=== PATIENT | male | born 1995 | race Caucasian/White ===

== ENCOUNTER 2019-01-03 15:29 | Emergency (ER) | payer OTHER, BC, SELFPAY ==
[2019-01-03 15:31] VITALS: BP 151/66; PULSE 82; RESP 16; TEMP 36.1; O2SAT 100; BMI 25.5
--- NOTE | 2019-01-03 15:53 | ED.VISSUMM ---
- ER Visit Summary Date of Service: 01/03/19 Chief Complaint: Left foot pain post injury History of Present Illness: The patient is a 23 M no seen in past medical or surgical history. States about a week and a half ago he was getting off a piece of equipment at his job site. When he felt a pop in his left foot has had pain intermittent swelling. He was seen in urgent care the other day he had x-rays obtained he was called later and told he had a fracture in his foot. He is unsure where. He said he again is stepped off the same piece of equipment and has had more pain in his foot. No prior history or surgery to his left foot. The pain is primary to distal and of the fourth and fifth metatarsals and along the midshaft of the fifth metatarsal per the patient. Physical Examination: Well-appearing young male. Vital signs stable afebrile. HEENT exam normal. Lungs clear. Heart regular rhythm no murmur. Abdomen soft nontender. Remedies moves all 4. Neurovascular intact. His left ankle is nontender nonswollen normal range of motion. Achilles tendon is intact. He has tenderness along the distal aspect of the fourth and fifth metatarsals and the midshaft of the fifth metatarsal. There is no significant swelling. DP pulses intact. Left foot is neurovascular intact with normal touch sensation and wiggle his toes. Otherwise exam unremarkable. Test Results: Left foot x-ray 3 views read by myself and radiologist shows no acute abnormality. No fracture. Emergency Department Course and Treatment: Repeat exam no change. Discussed in 1 of the x-ray with patient. Treatment Plan: Postop shoe. Ice to his foot. Motrin and Tylenol for pain. Follow-up if not improving. Disposition: Discharge Impression: Acute left foot contusion Worker's Comp. injury This note was generated with [employer] dictation software. It may contain incorrect words, spelling, and punctuation that were not noted in review of the chart prior to signing ED Disposition - Plan for ED Patient: Referrals: NOT,DEFINED [NON-STAFF] -
--- NOTE | 2019-01-03 16:01 | RAD_ITS ---
STUDY: X-RAY - LEFT FOOT CLINICAL: Male, 23 years old. Pain. Injury. TECHNIQUE: 3 view(s) of the foot. COMPARISON: None. FINDINGS: Normal talus, calcaneus, and tarsal bones. Normal visualized subtalar, talonavicular, calcaneocuboid, tarsal and tarsometatarsal articulations. Normal metatarsi. Normal metatarsophalangeal joint of the great toe. Normal tibial and fibular sesamoid bones. Normal interphalangeal joint of the great toe. Normal phalanges of the great toe. Normal second through fifth metatarsophalangeal joints. Normal interphalangeal joints and phalanges of the lesser toes. The soft tissue structures are unremarkable. There is no demonstrated fracture. RAD/Foot min 3 Views IMPRESSION: Normal x-ray examination of the foot. Electronically Signed: Bj Jones MD at 16:20 EDT , Service support ,
--- NOTE | 2019-01-03 16:08 | NURSING ---
CALLED [facility]. FOUND OUT MELIZA IS [employer]. CALLED MELIZA. SHE WILL BE IN
--- NOTE | 2019-01-03 16:49 | ED.DEP ---
ED Disposition - Plan for ED Patient: Disposition: Home or Assisted Living Instructions: CONTUSION, Foot Referrals: [facility] [GROUP OF PHYSICIANS] - As Needed Additional Instructions: Ice your foot. Motrin for pain. Use postop shoe. Follow-up if not improving. Your x-rays today were negative.
== END 2019-01-03 17:17 | disposition home or self-care (01) ==
PROVIDERS: Emergency Provider Emergency Medicine
DX: S90.32XA Contusion of left foot, initial encounter (principal); X58.XXXA Exposure to other specified factors, initial encounter; Y93.89 Activity, other specified; Y99.0 Civilian activity done for income or pay; Z72.0 Tobacco use
CPT/HCPCS: 73630; 99283